=== PATIENT | female | born 1960 | race African-American/Black ===

== ENCOUNTER 2020-07-24 14:23 | Inpatient (IN) ==
[2020-07-24] MEDS ORDERED: PANTOPRAZOLE 40 MG VIAL IV ONE (16:08)
[2020-07-24] MEDS: HYDROmorphone 2 MG/1 ML VIAL IV PRN ×2 (16:08→20:33)
[2020-07-24] MEDS ORDERED: HYDROmorphone 2 MG/1 ML VIAL ONE (16:09)
[2020-07-24] MEDS ORDERED: DEXTROSE 50% 25 GM/50 ML VIAL IV PRN (16:12)
[2020-07-24] MEDS ORDERED: DOCUSATE SODIUM 100 MG CAPSULE PO PRN (16:12)
[2020-07-24] MEDS ORDERED: SIMETHICONE CHEW 125 MG TABLET PO PRN (16:12)
[2020-07-24] MEDS ORDERED: NICOTINE 21 MG/24 HR PATCH TRANSDERM PRN (16:12)
[2020-07-24] MEDS ORDERED: GLUCAGON 1 MG VIAL IM PRN (16:12)
[2020-07-24] MEDS: PANTOPRAZOLE 40 MG VIAL IV SCH (16:16)
[2020-07-24] MEDS: SODIUM CHLORIDE 0.9% 1,000 ML IV SCH (16:18)
[2020-07-24] MEDS: PIPERACILLIN/TAZOBACTAM 3,375 MG in SODIUM CHLORIDE 0.9% 100 ML IV SCH (17:01)
[2020-07-24] MEDS: INSULIN LISPRO 100 UNIT/ML SUBCUT SCH ×2 (17:10→21:58)
[2020-07-25] MEDS: PIPERACILLIN/TAZOBACTAM 3,375 MG in SODIUM CHLORIDE 0.9% 100 ML IV SCH ×3 (00:14→16:06)
[2020-07-25] MEDS: SODIUM CHLORIDE 0.9% 1,000 ML IV SCH ×3 (03:12→07:14)
[2020-07-25 08:08] LABS: Basophils % 0.4 % (0.0-0.8); Eosinophils # 0.1 10*3/uL (0.0-0.87); Eosinophils % 1.7 % (0.00-10.9); Hematocrit 31.1 VOL% (35.7-47.0); Immature Granulocytes % 0.3 %; Immature Granulocytes Absolute 0.02 #; Lymphocytes % 13.6 % (21.3-54.2); Mean Corpuscular HGB Conc 32.5 GM/DL (32-36); Mean Corpuscular Volume 87.4 FL (87-102); Mean Platelet Volume 11.3 FL (9.6-12.0); Monocytes % 7.3 % (1.7-12.7); Neutrophils % 76.7 % (38.7-73.9); Platelet Count 213 T/CUMM (130-400); Red Cell Distribution Width 13.4 % (9.3-17.3)
[2020-07-25 08:09] LABS: Hemoglobin 10.1 GM/DL (12.0-16.0); Red Blood Count 3.56 MC/CUMM (3.8-5.5); White Blood Count 7.5 T/CUMM (4-12)
[2020-07-25 08:29] LABS: Albumin 2.4 G/DL (3.4-5.0); Bilirubin,Total 0.5 MG/DL (0.2-1.0); Calcium 9.8 MG/DL (8.5-10.1); Osmolality,Calculated 280.3 MOS/KG (273-304); Potassium 3.5 MMOL/L (3.5-5.1); Total Protein 6.6 G/DL (6.4-8.3)
[2020-07-25] MEDS: INSULIN LISPRO 100 UNIT/ML SUBCUT SCH ×4 (09:54→21:07)
[2020-07-25] MEDS: HYDROmorphone 2 MG/1 ML VIAL IV PRN ×3 (09:56→19:48)
[2020-07-25] MEDS: PANTOPRAZOLE 40 MG VIAL IV SCH (09:56)
[2020-07-25] MEDS: ONDANSETRON 4 MG/2 ML VIAL IV PRN ×2 (09:56→16:06)
[2020-07-25] MEDS ORDERED: hydrALAZINE 20 MG/1 ML VIAL IV PRN (10:56)
[2020-07-26] MEDS: PIPERACILLIN/TAZOBACTAM 3,375 MG in SODIUM CHLORIDE 0.9% 100 ML IV SCH ×3 (00:57→16:38)
[2020-07-26] MEDS: SODIUM CHLORIDE 0.9% 1,000 ML IV SCH ×3 (02:57→21:02)
[2020-07-26 04:22] LABS: Basophils % 0.5 % (0.0-0.8); Eosinophils # 0.2 10*3/uL (0.0-0.87); Hematocrit 29.6 VOL% (35.7-47.0); Hemoglobin 9.4 GM/DL (12.0-16.0); Immature Granulocytes % 0.5 %; Immature Granulocytes Absolute 0.03 #; Lymphocytes # 1.1 10*3/uL (1.4-4.0); Lymphocytes % 19.4 % (21.3-54.2); Mean Corpuscular HGB Conc 31.8 GM/DL (32-36); Mean Corpuscular Volume 87.8 FL (87-102); Mean Platelet Volume 11.4 FL (9.6-12.0); Monocytes % 10.9 % (1.7-12.7); Neutrophils % 65.7 % (38.7-73.9); Platelet Count 212 T/CUMM (130-400); Red Blood Count 3.37 MC/CUMM (3.8-5.5); Red Cell Distribution Width 13.3 % (9.3-17.3); White Blood Count 5.8 T/CUMM (4-12)
[2020-07-26 04:39] LABS: Albumin 2.3 G/DL (3.4-5.0); Bilirubin,Total 0.6 MG/DL (0.2-1.0); Calcium 9.5 MG/DL (8.5-10.1); Osmolality,Calculated 281.1 MOS/KG (273-304); Potassium 3.1 MMOL/L (3.5-5.1); Total Protein 6.1 G/DL (6.4-8.3)
[2020-07-26] MEDS: HYDROmorphone 2 MG/1 ML VIAL IV PRN ×3 (06:22→20:18)
[2020-07-26] MEDS ORDERED: propofoL 200 MG/20 ML VIAL IV ONE (07:20)
[2020-07-26] MEDS ORDERED: LIDOCAINE 2% 5 ML VIAL ONE (07:20)
[2020-07-26] MEDS ORDERED: MIDAZOLAM 2 MG/2 ML VIAL ONE (07:20)
[2020-07-26] MEDS ORDERED: fentaNYL 100 MCG/2 ML VIAL ONE ×2 (07:20→10:00)
[2020-07-26] MEDS ORDERED: ROCURONIUM 50 MG/5 ML VIAL IV ONE (07:20)
[2020-07-26] MEDS ORDERED: INDOCYANINE GREEN 25 MG VIAL IV ONE (07:33)
[2020-07-26] MEDS ORDERED: MAGNESIUM SULF RIDER 2 GM in PREMIX 1 EACH IV PRN (07:46)
[2020-07-26] MEDS ORDERED: POTASSIUM CHLORIDE RIDER 10 MEQ in PREMIX 1 EACH IV PRN (07:46)
[2020-07-26] MEDS ORDERED: MAGNESIUM SULF RIDER 4 GM in PREMIX 1 EACH IV PRN (07:46)
[2020-07-26] MEDS ORDERED: TISSUE ADHESIVE 1 EACH APPLICATOR TOP ONE (08:42)
[2020-07-26] MEDS ORDERED: BUPIVACAINE MPF 0.25% 30 ML VIAL ONE (08:43)
[2020-07-26] MEDS ORDERED: LIDOCAINE 1%/EPI INJ 20 ML VIAL ONE (08:43)
[2020-07-26] MEDS ORDERED: ONDANSETRON 4 MG/2 ML VIAL ONE (09:02)
[2020-07-26] MEDS ORDERED: GLYCOPYRROLATE 0.4 MG/2 ML VIAL ONE ×3 (09:40→11:19)
[2020-07-26] MEDS ORDERED: PHENYLEPHRINE 1 MG/10 ML SYRINGE IV ONE (09:42)
[2020-07-26] MEDS ORDERED: LABETALOL 20 MG/4 ML SYRINGE IV ONE (10:45)
[2020-07-26] MEDS ORDERED: SEVOFLURANE 1 UNIT/15 MINUTE INH ONE ×7 (10:52)
[2020-07-26] MEDS ORDERED: LACTATED RINGERS 1,000 ML IV ONE (10:52)
[2020-07-26] MEDS ORDERED: NEOSTIGMINE 10 MG/10 ML VIAL ONE (11:10)
[2020-07-26] MEDS ORDERED: hydrALAZINE 20 MG/1 ML VIAL ONE (11:32)
[2020-07-26] MEDS: INSULIN LISPRO 100 UNIT/ML SUBCUT SCH ×3 (15:34→20:53)
[2020-07-26] MEDS: PANTOPRAZOLE 40 MG VIAL IV SCH (15:35)
[2020-07-27] MEDS: PIPERACILLIN/TAZOBACTAM 3,375 MG in SODIUM CHLORIDE 0.9% 100 ML IV SCH ×3 (00:51→16:25)
[2020-07-27 01:37] LABS: Basophils % 0.3 % (0.0-0.8); Eosinophils % 0.1 % (0.00-10.9); Hematocrit 31.9 VOL% (35.7-47.0); Hemoglobin 10.6 GM/DL (12.0-16.0); Immature Granulocytes % 0.7 %; Immature Granulocytes Absolute 0.08 #; Lymphocytes # 1.2 10*3/uL (1.4-4.0); Lymphocytes % 9.7 % (21.3-54.2); Mean Corpuscular HGB Conc 33.2 GM/DL (32-36); Mean Corpuscular Volume 85.5 FL (87-102); Mean Platelet Volume 11.4 FL (9.6-12.0); Monocytes % 7.2 % (1.7-12.7); Platelet Count 233 T/CUMM (130-400); Red Blood Count 3.73 MC/CUMM (3.8-5.5); Red Cell Distribution Width 13.2 % (9.3-17.3); White Blood Count 11.8 T/CUMM (4-12)
[2020-07-27 01:54] LABS: Albumin 2.4 G/DL (3.4-5.0); Bilirubin,Total 0.6 MG/DL (0.2-1.0); Calcium 9.5 MG/DL (8.5-10.1); Osmolality,Calculated 272.7 MOS/KG (273-304); Potassium 3.2 MMOL/L (3.5-5.1); Total Protein 6.5 G/DL (6.4-8.3)
[2020-07-27] MEDS: ACETAMINOPHEN 325 MG TABLET PO PRN ×2 (02:01→16:26)
[2020-07-27] MEDS: SODIUM CHLORIDE 0.9% 1,000 ML IV SCH ×4 (07:21→18:26)
[2020-07-27] MEDS: INSULIN LISPRO 100 UNIT/ML SUBCUT SCH ×3 (07:23→16:27)
[2020-07-27] MEDS: HYDROmorphone 2 MG/1 ML VIAL IV PRN ×3 (08:17→20:37)
[2020-07-27] MEDS: PANTOPRAZOLE 40 MG TABLET PO SCH (08:20)
[2020-07-27] MEDS ORDERED: GLUCAGON 1 MG VIAL IM PRN (09:51)
[2020-07-27] MEDS ORDERED: DEXTROSE 50% 25 GM/50 ML VIAL IV PRN (09:51)
[2020-07-27] MEDS: DOCUSATE SODIUM 100 MG CAPSULE PO SCH ×2 (14:44→21:56)
[2020-07-28] MEDS: INSULIN LISPRO 100 UNIT/ML SUBCUT SCH ×3 (00:27→11:46)
[2020-07-28] MEDS: PIPERACILLIN/TAZOBACTAM 3,375 MG in SODIUM CHLORIDE 0.9% 100 ML IV SCH ×2 (01:42→13:14)
[2020-07-28 07:06] LABS: Basophils % 0.2 % (0.0-0.8); Eosinophils # 0.1 10*3/uL (0.0-0.87); Eosinophils % 0.8 % (0.00-10.9); Hematocrit 28.2 VOL% (35.7-47.0); Hemoglobin 9.1 GM/DL (12.0-16.0); Immature Granulocytes % 1.3 %; Immature Granulocytes Absolute 0.11 #; Lymphocytes # 0.8 10*3/uL (1.4-4.0); Lymphocytes % 9.1 % (21.3-54.2); Mean Corpuscular HGB Conc 32.3 GM/DL (32-36); Mean Corpuscular Volume 87.3 FL (87-102); Mean Platelet Volume 12.6 FL (9.6-12.0); Monocytes % 3.7 % (1.7-12.7); Neutrophils % 84.9 % (38.7-73.9); Platelet Count 207 T/CUMM (130-400); Red Blood Count 3.23 MC/CUMM (3.8-5.5); Red Cell Distribution Width 13.4 % (9.3-17.3); White Blood Count 8.7 T/CUMM (4-12)
[2020-07-28 07:27] LABS: Calcium 9.2 MG/DL (8.5-10.1); Potassium 2.7 MMOL/L (3.5-5.1)
[2020-07-28] MEDS ORDERED: POTASSIUM CHLORIDE 20 MEQ TABLET PO ONE (09:30)
[2020-07-28] MEDS: PANTOPRAZOLE 40 MG TABLET PO SCH (10:17)
[2020-07-28] MEDS: DOCUSATE SODIUM 100 MG CAPSULE PO SCH (10:17)
[2020-07-28 11:51] VITALS: BP 177/126
== END 2020-07-28 16:50 | disposition home or self-care (01) | DRG 419 ==
LOC: N.ED 14:23 → SUATTDRO 16:12 → N.EDINP 16:12 → N.3E 18:15
PROVIDERS: ADMIT Internal Medicine; ATTEND Internal Medicine

== ENCOUNTER 2021-05-19 05:57 | Observation (INO) ==
[2021-05-17 11:03] LABS: Basophils % 0.9 % (0.0-0.8); Eosinophils # 0.1 10*3/uL (0.0-0.87); Eosinophils % 1.5 % (0.00-10.9); Hematocrit 38.6 VOL% (35.7-47.0); Hemoglobin 12.2 GM/DL (12.0-16.0); Immature Granulocytes % 0.2 %; Immature Granulocytes Absolute 0.01 #; Lymphocytes # 1.9 10*3/uL (1.4-4.0); Lymphocytes % 40.3 % (21.3-54.2); Mean Corpuscular HGB Conc 31.6 GM/DL (32-36); Mean Corpuscular Volume 89.6 FL (87-102); Mean Platelet Volume 11.8 FL (9.6-12.0); Neutrophils % 50.1 % (38.7-73.9); Platelet Count 238 T/CUMM (130-400); Red Blood Count 4.31 MC/CUMM (3.8-5.5); Red Cell Distribution Width 14.2 % (9.3-17.3); White Blood Count 4.7 T/CUMM (4-12)
[2021-05-17 11:42] LABS: Calcium 10.5 MG/DL (8.5-10.1); Osmolality,Calculated 289.4 MOS/KG (273-304); Potassium 4.6 MMOL/L (3.5-5.1)
[2021-05-19] MEDS ORDERED: DIAZEPAM 5 MG TABLET PO ONE (07:03)
[2021-05-19] MEDS ORDERED: ALBUTEROL 2.5 MG/3 ML NEB RESP TX ONE (07:03)
[2021-05-19] MEDS ORDERED: GABAPENTIN 400 MG CAPSULE PO ONE (07:03)
[2021-05-19] MEDS ORDERED: ACETAMINOPHEN 500 MG TABLET PO ONE (07:03)
[2021-05-19] MEDS ORDERED: FAMOTIDINE 20 MG TABLET PO ONE (07:03)
[2021-05-19] MEDS: LACTATED RINGERS 1,000 ML IV SCH ×2 (08:10→09:31)
[2021-05-19] MEDS ORDERED: LIDOCAINE 1%/EPI INJ 20 ML VIAL ONE (08:26)
[2021-05-19] MEDS ORDERED: BUPIVACAINE MPF 0.25% 30 ML VIAL ONE (08:26)
[2021-05-19] MEDS ORDERED: fentaNYL 100 MCG/2 ML VIAL ONE ×2 (08:34→09:47)
[2021-05-19] MEDS ORDERED: MIDAZOLAM 2 MG/2 ML VIAL ONE (08:34)
[2021-05-19] MEDS ORDERED: BUPIVACAINE 0.5% 50 ML VIAL ONE (08:36)
[2021-05-19] MEDS ORDERED: ONDANSETRON 4 MG/2 ML VIAL ONE ×3 (08:40→17:54)
[2021-05-19] MEDS ORDERED: propofoL 200 MG/20 ML VIAL IV ONE ×2 (08:40→09:35)
[2021-05-19] MEDS ORDERED: ROCURONIUM 50 MG/5 ML VIAL IV ONE (08:40)
[2021-05-19] MEDS ORDERED: LIDOCAINE 2% 5 ML VIAL ONE (08:40)
[2021-05-19] MEDS ORDERED: MINERAL OIL/PETROLATUM OPH OINT 3.5 GM TUBE ONE (09:11)
[2021-05-19] MEDS ORDERED: GLYCOPYRROLATE 0.4 MG/2 ML VIAL ONE (09:27)
[2021-05-19] MEDS ORDERED: KETAMINE 500 MG/10 ML VIAL ONE (09:29)
[2021-05-19] MEDS ORDERED: TISSUE ADHESIVE 1 EACH APPLICATOR TOP ONE (09:45)
[2021-05-19] MEDS ORDERED: LACTATED RINGERS 1,000 ML IV ONE (10:21)
[2021-05-19] MEDS ORDERED: SUGAMMADEX 200 MG/2 ML VIAL IV ONE (10:29)
[2021-05-19] MEDS ORDERED: SEVOFLURANE 1 UNIT/15 MINUTE INH ONE (10:29)
[2021-05-19] MEDS ORDERED: HYDROmorphone 2 MG/1 ML VIAL ONE (11:08)
[2021-05-19] MEDS ORDERED: hydrALAZINE 20 MG/1 ML VIAL ONE (11:08)
[2021-05-19] MEDS ORDERED: ONDANSETRON 4 MG/2 ML VIAL IV PRN (11:13)
[2021-05-19] MEDS ORDERED: HYDROmorphone 2 MG/1 ML VIAL IV PRN (11:13)
[2021-05-19] MEDS ORDERED: hydrALAZINE 20 MG/1 ML VIAL IV ONE (11:14)
[2021-05-19] MEDS ORDERED: KETOROLAC 10 MG TABLET PO ONE (14:35)
[2021-05-19] MEDS ORDERED: GLUCAGON 1 MG VIAL IM PRN (15:40)
[2021-05-19] MEDS ORDERED: DEXTROSE 50% 25 GM/50 ML VIAL IV PRN (15:40)
[2021-05-19] MEDS ORDERED: KETOROLAC 15 MG/1 ML VIAL IV PRN (15:40)
[2021-05-19] MEDS ORDERED: MORPHINE 2 MG/1 ML SYRINGE IV PRN (15:40)
[2021-05-19] MEDS ORDERED: DOCUSATE SODIUM 100 MG CAPSULE PO PRN (16:23)
[2021-05-19] MEDS: INSULIN REGULAR 100 UNIT/ML SUBCUT SCH ×2 (17:03→22:16)
[2021-05-20] MEDS ORDERED: amLODIPine 5 MG TABLET PO SCH (09:00)
[2021-05-20] MEDS ORDERED: FERROUS SULFATE 325 MG TABLET PO SCH (09:00)
[2021-05-20] MEDS ORDERED: ASPIRIN CHEW 81 MG TABLET PO SCH (09:00)
[2021-05-20] MEDS ORDERED: LOSARTAN 50 MG TABLET PO SCH (09:00)
[2021-05-20] MEDS: INSULIN REGULAR 100 UNIT/ML SUBCUT SCH ×2 (09:55→12:29)
[2021-05-20 11:55] VITALS: BP 175/63
== END 2021-05-20 13:00 | disposition home or self-care (01) ==
LOC: N.SDSINP 05:57 → N.OR 05:57 → N.SDSINP 05:58 → INTOOBSV 15:38 → N.SDSINP 15:38 → N.3E 16:39
PROVIDERS: ADMIT Surgery; ATTEND Surgery